=== PATIENT | male | born 1935 ===

== ENCOUNTER 2017-02-03 06:48 | Day surgery (SDC) | payer MEDICARE, MEDICAID ==
[2017-01-24 11:13] VITALS: BMI 19.2
[2017-02-03] MEDS ORDERED: Lactated Ringer's 1,000 ML IV ONE (07:51)
[2017-02-03] MEDS ORDERED: Propofol 10 mg/ml Inj (20 ML) ONE (08:56)
[2017-02-03] MEDS ORDERED: Midazolam 2 MG/2 ML VIAL ONE (08:56)
[2017-02-03] MEDS ORDERED: Succinylcholine 200 mg/10 ml Inj IV ONE (09:01)
[2017-02-03] MEDS ORDERED: ePHEDrine 50 mg/ml Inj ONE (09:01)
[2017-02-03] MEDS ORDERED: Sevoflurane - Inhalation Anesthetic Liq (250 ml) ONE (09:02)
[2017-02-03] MEDS ORDERED: HYDROmorphone 0.5 mg/0.5 ml ISec IVP PRN (10:01)
[2017-02-03 10:07] VITALS: RESP 18
--- NOTE | 2017-02-03 10:13 | OP ---
PROCEDURE DATE: 02/03/2017 PREOPERATIVE DIAGNOSIS: Gross hematuria with embedded prostatic urethral calculi. POSTOPERATIVE DIAGNOSES: Gross hematuria with embedded prostatic urethral calculi. PROCEDURE PERFORMED ON THE PATIENT: Cystoscopy with extraction of multiple prostatic urethral calcul i. The patient was placed on the operating table in a dorsal lithotomy position. The area of the groin was draped and prepped in a sterile manner. Using a #21 cystoscope, I entered into the urethra atrau matically. At the level of the prostatic urethra, there was noted to be multiple embedded prostatic calculi. Using the biopsy forceps, I was able to extract all the visual stones that were there, and I thought that that was the source of the bleeding. Once all the visual stones were removed, then th e patient had the bladder washed. The stones were sent for specimen analysis, and then the patient w as taken from the operating room in good condition. Abbi Palomino MD cc: 48 TT: 02/03/2017 10:13:19 jn
[2017-02-03] MEDS ORDERED: Lactated Ringer's 1,000 ML IV SCH (10:15)
--- NOTE | 2017-02-03 10:15 | DS ---
The patient was admitted for elective extraction of prostatic urethral calculi. He had that done tod ay in an uneventful manner. Postoperatively, the patient is stable. Once he is voiding, he will be allowed to be discharged home . I call him back to the office once I have the pathology on the stones to discuss further treatment . Abbi Palomino MD cc: 48 TT: 02/03/2017 10:14:21 jn
[2017-02-03 13:17] VITALS: BP 103/73; PULSE 76; TEMP 97.4; O2SAT 98
== END 2017-02-03 13:22 | disposition home or self-care (01) ==
LOC: H.OPSURG 06:48
PROVIDERS: ATTEND Urology
DX: R31.0 Gross hematuria (principal); N21.1 Calculus in urethra
CPT/HCPCS: 52310; 88304; J0330; J0690; J2001; J2250; J2704; J3010; J7120